=== PATIENT | female | born 1930 | race Caucasian/White ===

== ENCOUNTER 2017-03-07 14:10 | Emergency (ER) | payer OTHER ==
[2017-03-07 14:33] VITALS: TEMP 97.9; BMI 30.9
--- NOTE | 2017-03-07 14:33 | PDOC ---
History of Present Illness - General History Source: Patient, Family Exam Limitations: No Limitations - History of Present Illness Initial Comments: 03/07/17 15:22 The patient is an 87 year old female, accompanied by daughter, with a past medical history of dementia BIBA to the emergency department from [facility] for further evaluation of weakness today. Daughter states that the patient has had associated decreased appetite, difficulty opening eyes, and right sided tilt. Daughter notes at baseline the patient has a good appetite, in non-verbal, and happy. <Kamran Quintana - Last Filed: 03/07/17 15:22> <Bryan Millan - Last Filed: 03/07/17 17:47> - General Chief Complaint: Weakness Stated Complaint: Weakness Time Seen by Provider: 03/07/17 14:33 Past History <Kamran Quintana - Last Filed: 03/07/17 15:22> - Past Medical History Cardiac Disorders: Yes Dementia: Yes Diabetes: Yes HTN: Yes Seizures: Yes Thyroid Disease: Yes - Surgical History Cholecystectomy: Yes - Psycho/Social/Smoking Cessation Hx Anxiety: No Suicidal Ideation: No Smoking Status: No Smoking History: Never smoked Have you smoked in the past 12 months: No Number of Cigarettes Smoked Daily: 0 Hx Alcohol Use: No Drug/Substance Use Hx: No Substance Use Type: None Hx Substance Use Treatment: No <Bryan Millan - Last Filed: 03/07/17 17:47> - Past Medical History Allergies/Adverse Reactions: Allergies Allergy/AdvReac Type Severity Reaction Status Date / Time Penicillins AdvReac Unknown Verified 03/07/17 14:35 Home Medications: Ambulatory Orders Aspirin 325 mg PO DAILY 12/11/11 Carvedilol 25 mg PO BID 12/11/11 Levothyroxine 50 mg PO DAILY 12/11/11 Metformin HCl 500 mg PO DAILY 12/11/11 Divalproex 250 mg PO BID 12/15/11 Levofloxacin [Levaquin -] 500 mg PO DAILY@0600 #0 tablet 01/15/13 Aspirin [ASA -] 81 mg PO DAILY 01/20/13 Carvedilol [Coreg -] 25 mg PO BID 01/20/13 Divalproex [Depakote -] 250 mg PO BID 01/20/13 Levothyroxine [Synthroid -] 50 mcg PO DAILY 01/20/13 Metformin HCl [Glucophage -] 500 mg PO DAILY 01/20/13 Cefuroxime Axetil [Ceftin] 500 mg PO BID #0 tablet 01/22/13 Review of Systems - Review of Systems Able to Perform ROS?: Yes Comments:: 03/07/17 15:23 GENERAL/CONSTITUTIONAL: No fever or chills. No weakness. HEAD, EYES, EARS, NOSE AND THROAT: (+) Difficulty opening eyes. No ear pain or discharge. No sore throat. CARDIOVASCULAR: No chest pain or shortness of breath. RESPIRATORY: No cough, wheezing, or hemoptysis. GASTROINTESTINAL: No nausea, vomiting, diarrhea or constipation. GENITOURINARY: No dysuria, frequency, or change in urination. MUSCULOSKELETAL: Yes right sided tilt. No joint or muscle swelling or pain. No neck or back pain. SKIN: No rash NEUROLOGIC: No headache, vertigo, loss of consciousness, or change in strength/ sensation. ENDOCRINE: Yes decreased appetite. No increased thirst. No abnormal weight change. HEMATOLOGIC/LYMPHATIC: No anemia, easy bleeding, or history of blood clots. ALLERGIC/IMMUNOLOGIC: No hives or skin allergy. <Kamran Quintana - Last Filed: 03/07/17 15:22> *Physical Exam - Vital Signs Last Vital Signs Temp Pulse Resp BP Pulse Ox 97.9 F 57 L 18 158/92 94 L 03/07/17 14:28 03/07/17 14:28 03/07/17 14:28 03/07/17 14:28 03/07/17 14:28 - Physical Exam Comments: 03/07/17 15:23 GENERAL: Awake,in no acute distress HEAD: No signs of trauma EYES: PERRLA, EOMI, sclera anicteric, conjunctiva clear ENT: Auricles normal inspection, hearing grossly normal, nares patent, oropharynx clear without exudates. Moist mucosa NECK: Supple, no lymphadenopathy, JVD, or masses LUNGS: Breath sounds equal, clear to auscultation bilaterally. No wheezes, and no crackles HEART: Regular rate and rhythm, normal S1 and S2, no murmurs, rubs or gallops ABDOMEN: Soft, nontender, normoactive bowel sounds. No guarding, no rebound. No masses EXTREMITIES: Lower right leg edema. Normal range of motion, no edema. No clubbing or cyanosis. No cords, erythema, or tenderness NEUROLOGICAL: Cranial nerves II through XII grossly intact. SKIN: Warm, Dry, normal turgor, no rashes or lesions noted. <Kamran Quintana - Last Filed: 03/07/17 15:22> ED Treatment Course - LABORATORY CBC & Chemistry Diagram: 03/07/17 15:04 03/07/17 15:04 - ADDITIONAL ORDERS Additional order review: 03/07/17 15:04 RBC 4.10 MCV 89.7 MCHC 34.3 RDW 13.7 MPV 9.0 Neutrophils % 49.4 Lymphocytes % 39.4 Monocytes % 8.1 Eosinophils % 2.4 Basophils % 0.7 <Kamran Quintana - Last Filed: 03/07/17 15:22> - LABORATORY CBC & Chemistry Diagram: 03/07/17 15:04 03/07/17 15:04 <Bryan Millan - Last Filed: 03/07/17 17:47> *DC/Admit/Observation/Transfer - Attestations Scribe Attestion: 03/07/17 15:23 Documentation prepared by Kamran Quintana, acting as medical advisor for Bryan Millan DO. <Kamran Quintana - Last Filed: 03/07/17 15:22> - Discharge Dispostion Admit: No - Attestations Physician Attestion: 03/07/17 14:33 I, Dr. Bryan Millan, attest that this document has been prepared under my direction and personally reviewed by me in its entirety. I further attest, that it accurately reflects all work, treatment, procedures and medical decision -making performed by me. <Bryan Millan - Last Filed: 03/07/17 17:47> Diagnosis at time of Disposition: UTI (urinary tract infection), bacterial, Dehydration, mild Fatigue Qualifiers: Fatigue type: unspecified Qualified Code(s): R53.83 - Other fatigue - Discharge Dispostion Disposition: HOME Condition at time of disposition: Good - Referrals Referrals: Victor Hugo Ambrocio MD [Primary Care Provider] - - Patient Instructions Printed Discharge Instructions: DI for Urinary Tract Infection (UTI) Additional Instructions: Levaquin 750 is once a day for UTI
[2017-03-07 15:19] LABS: BASOPHIL 0.7 % (0-2.0); EOSINOPHIL 2.4 % (0-4.5); MCH 30.8 pg (25.7-33.7); MCHC 34.3 g/dl (32.0-36.0); MEAN CELL VOLUME 89.7 fl (80-96); NEUTROPHILS 49.4 % (42.8-82.8); PLATELET COUNT 201 K/MM3 (134-434); RDW 13.7 % (11.6-15.6); WHITE BLOOD COUNT 7.8 K/mm3 (4.0-10.0)
[2017-03-07 15:46] LABS: ALBUMIN 3.5 g/dl (3.4-5.0); CALCIUM 9.1 mg/dL (8.5-10.1); COCKROFT - GAULT 38.199; CREATININE 1.3 mg/dL (0.55-1.02)
[2017-03-07 15:48] LABS: BILIRUBIN,TOTAL 0.4 mg/dL (0.2-1.0); TOT PROT 7.1 g/dl (6.4-8.2)
--- NOTE | 2017-03-07 16:19 | PN ---
Progress Note (short form) - Note Progress Note: 87 y.o F from [facility] was observed having eyes closed, leaning to the side and not responding toverbal stimuli. Tx to ER [facility] to R/O CVA. Pt examined with daughter Monica at bedside Now MS at baseline. No any complaints. ROS. 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 HTN Hypothyroidism. DM type 2. AHD. CHF. On PE 97.9-57-18-158/92. Awake, alert, knows daughter's name. Eyes open. Neck-no JVD, no tenderness, no thyromegaly Lungs are clear. Heart S1S2 regular Abdomen soft, NT Breasts-no masses LE-no CC, not cold, + 1 edema dorsal feet. Moving UE/LE Labs noted Cr 1.3, last Cr 1.43 in 2016 EKG-SR Imp Episode of decrease responsiveness in a pt with seizure disorder-likely due to postictal state. Possibly vaso-vagal though vital signs at [facility]-WNL. Unlikely TIA. Plan Continue meds.Pt can retun to [facility]. Discussed with family. Will follow at [facility].
[2017-03-07 17:04] LABS: URINE APPEARANCE CLEAR; URINE BILIRUBIN NEGATIVE (NEGATIVE); URINE BLOOD NEGATIVE (NEGATIVE); URINE COLOR LTYELLOW; URINE GLUCOSE (UA) NEGATIVE (NEGATIVE); URINE KETONE NEGATIVE (NEGATIVE); URINE NITRITE POSITIVE (NEGATIVE); URINE PROTEIN NEGATIVE (NEGATIVE); URINE UROBILINOGEN NEGATIVE E.U./dl (0.2-1.0)
[2017-03-07 17:05] LABS: URINE LEUK ESTERASE 3+ (NEGATIVE)
[2017-03-07] MEDS ORDERED: LEVOFLOXACIN 250 MG TABLET (FP) PO ONE (17:36)
[2017-03-07 17:39] LABS: URINE BACTERIA FEW /hpf (NONE SEEN); URINE HYALINE CAST 4 /lpf; URINE RBC <1 /hpf (0-3); URINE WBC 31 /hpf (3-5)
[2017-03-07] MEDS ORDERED: LEVOFLOXACIN 250 MG TABLET (FP) ONE (18:37)
[2017-03-07] MEDS ORDERED: LEVOFLOXACIN 500 MG TABLET (FP) ONE (18:37)
[2017-03-07 20:15] VITALS: BP 143/80; PULSE 61
--- NOTE | 2017-03-08 16:22 | EKG ---
Test Reason : Blood Pressure : / mmHG Vent. Rate : 056 BPM Atrial Rate : 056 BPM P-R Int : 162 ms QRS Dur : 142 ms QT Int : 506 ms P-R-T Axes : 034 010 115 degrees QTc Int : 488 ms POOR DATA QUALITY, INTERPRETATION MAY BE ADVERSELY AFFECTED SINUS BRADYCARDIA LEFT BUNDLE BRANCH BLOCK ABNORMAL ECG WHEN COMPARED WITH ECG OF 05-JAN-1999 08:34, VENT. RATE HAS DECREASED BY 51 BPM Confirmed by CRISTIAN TOTH MD ([id number]) on 03/08/2017 4:21:54 PM Referred By: Confirmed By:CRISTIAN TOTH MD
== END 2017-03-07 20:15 ==
LOC: JER 14:10
DX: N39.0 Urinary tract infection, site not specified (principal); E86.0 Dehydration; I10 Essential (primary) hypertension; E11.29 Type 2 diabetes mellitus with other diabetic kidney complication; Z79.84 Long term (current) use of oral hypoglycemic drugs; G40.909 Epilepsy, unspecified, not intractable, without status epilepticus; F03.90 Unspecified dementia, unspecified severity, without behavioral disturbance, psychotic disturbance, mood disturbance, and anxiety
CPT/HCPCS: 36415; 71010-TC; 74020-TC; 80053; 81003; 81015; 83690; 85025; 93005; 93010; 99283-25